=== PATIENT | female | born 1940 | race Caucasian/White ===

== ENCOUNTER 2017-05-25 11:15 | Emergency (ER) | payer MEDICARE ==
[~2017-05-25] VITALS: Ht 152.4 cm; Wt 85.0 kg
[2017-05-25 11:19] VITALS: BP 116/64; PULSE 75; RESP 12; TEMP 98.3; O2SAT 92
[2017-05-25] MEDS ORDERED: RIVA13.3 T-DERMAL (11:37)
[2017-05-25] MEDS ORDERED: OXYB10TA PO (11:37)
[2017-05-25] MEDS ORDERED: MEMA14CA PO (11:37)
--- NOTE | 2017-05-25 11:58 | PD ---
HPI Chief Complaint: Hip Injury Time Seen by Provider: 11:24 Travel History International Travel<30 days: No Contact w/Intl Traveler<30days: No Traveled to known affect area: No History of Present Illness HPI The patient is a 76-year-old female who presents emergency department with her for right hip pain. [place] she [place] and fell. The patient landed on her right hip. She complains of right hip pain and pelvic pain which is worse with weightbearing. She does have a history of previous right hip surgery approximately 25 years ago. The patient denies any loss of consciousness, headache, neck pain, chest pain, shortness breath, nausea, vomiting, or abdominal pain with the fall. The patient does have a history of dementia, somewhat limited historian, the provides most of the history. The patient does medications for dementia. The patient denies any other complaints except for right hip pain. PFSH Past Medical History Alzheimer's Disease: Yes Dementia: Yes Diminished Hearing: No Neurologic: Yes Tetanus Vaccination: < 5 Years Influenza Vaccination: No Past Surgical History Other Surgery: Yes (left carpal tunnel sx) Social History Alcohol Use: No Tobacco Use: No Substance Use: No Allergies-Medications (Allergen,Severity, Reaction): Coded Allergies: Fish Containing Products (Verified Allergy, Unknown, 05/25/17) Uncoded Allergies: HORSE (Allergy, Unknown, 05/25/17) Reported Meds & Prescriptions Reported Meds & Active Scripts Active Dinuba (Hydrocodone-Acetaminophen) 5 Mg-325 Mg Tab 1 Tab PO Q6H PRN Walker [place] Wheels/5 Adj (Device) 1 Mis Mis Ea .XX DIRECTED Use walker as directed Reported Oxybutynin ER 24 HR (Oxybutynin Chloride) 10 Mg Tab 10 Mg PO DAILY Exelon Patch (Rivastigmine) 13.3 mg/24 hr Patch 1 Patch T-DERMAL DAILY Namenda Xr (Memantine) Unknown Strength Caper Unknown Dose PO DAILY Review of Systems Except as stated in HPI: all other systems reviewed are Neg HENT: No: Headaches, Neck Pain Cardiovascular: No: Chest Pain or Discomfort Respiratory: No: Shortness of Breath Gastrointestinal: No: Nausea, Vomiting, Abdominal Pain Musculoskeletal: Positive: Pain Neurologic: Positive: Other (history of dementia), No: Paresthesia, Sensory Disturbance Physical Exam Narrative GENERAL: Awake, alert, 76-year-old female who appears her stated age and is in no acute respiratory distress. SKIN: Focused skin assessment warm/dry. HEAD: Atraumatic. Normocephalic. EYES: Pupils equal and round. 3 mm bilateral and reactive. ENT: No nasal bleeding or discharge. Mucous membranes pink and moist. NECK: Trachea midline. No JVD. CARDIOVASCULAR: Regular rate and rhythm. No murmur appreciated. RESPIRATORY: No accessory muscle use. Clear to auscultation. Breath sounds equal bilaterally. GASTROINTESTINAL: Abdomen soft, non-tender, nondistended. No rebound tenderness. MUSCULOSKELETAL: Well-healed scar over the lateral aspect of the right hip. Mild lower extremity pitting edema. NEUROLOGICAL: Awake and alert. No obvious cranial nerve deficits. Motor grossly within normal limits. Normal speech. Nonfocal. Oriented to name. PSYCHIATRIC: Appropriate mood and affect; insight and judgment normal. Data Data Last Documented VS Vital Signs Date Time Temp Pulse Resp B/P (MAP) Pulse Ox O2 Delivery O2 Flow Rate FiO2 05/25/17 11:19 98.3 75 12 116/64 (81) 92 Orders Orders Pelvis, Ap Only (Routine) (05/25/17 ) Femur (Ap & Lat/2vws) (05/25/17 ) Ct Pelvis W/O Iv Contrast (05/25/17 ) Splinting (05/25/17 ) Radiology Film Requests (05/25/17 ) Ed Discharge Order (05/25/17 13:54) [facility] Medical Decision Making Medical Screen Exam Complete: Yes Emergency Medical Condition: Yes Medical Record Reviewed: Yes Interpretation(s) Last Impressions Pelvis X-Ray 05/25/17 0000 Signed Impressions: Service Date/Time: Thursday, May 25, 2017 11:49 - CONCLUSION: 1. Right hip arthroplasty in place with apparent fracture of the right lesser trochanter. 2. Prominent degenerative changes of the left hip. Scott Larios MD Pelvis CT 05/25/17 0000 Signed Impressions: Service Date/Time: Thursday, May 25, 2017 12:54 - CONCLUSION: 1. Right hip arthroplasty in place with slightly comminuted displaced fracture of the lesser trochanter. 2. Otherwise, no evidence for acute bony fracture or other acute amount in the pelvis. Scott Larios MD Femur X-Ray 05/25/17 0000 Signed Impressions: Service Date/Time: Thursday, May 25, 2017 11:50 - CONCLUSION: 1. Right hip arthroplasty with extensive plate and screw fixation of the right femur. 2. Displaced fracture of the lesser trochanter. Scott Larios MD Differential Diagnosis Differential diagnosis includes fracture, dislocation, hematoma, contusion, pelvic fracture, mechanical fall. Narrative Course X-ray of the right hip was obtained. X-ray of the hip reveals fracture lesser trochanter. CT the pelvis reveals fracture lesser trochanter. I discussed the patient with the on-call orthopedist, Dr. Ponce, who states the patient can be discharged home with a walker and no weightbearing on the left leg. I discussed this with the , he states he had a walker in [place], [place] and are heading to [place] straight from the ER. The patient will be provided a copy of her x-rays and CTs at discharge. Diagnosis Primary Impression: Fracture of lesser trochanter of femur Qualified Codes: S72.121A - Displaced fracture of lesser trochanter of right femur, initial encounter for closed fracture Patient Instructions: General Instructions Additional Instructions: Please provide the patient a copy of the disc containing her CTs and lab results. Pain medications as directed. Use walker as directed. Follow-up with your orthopedist. Return if symptoms worsen or progress. Med/Other Pt SpecificInfo: Prescription(s) given Scripts Hydrocodone-Acetaminophen (Dinuba) 5 Mg-325 Mg Tab 1 TAB PO Q6H Y for PAIN, #15 TAB 0 Refills Prov: Ho Dong MD 05/25/17 Walker [place] Wheels/5 Adj (Walker [place] Wheels/5 Adj) 1 Mis Mis EA .XX DIRECTED, #1 0 Refills Use walker as directed Prov: Ho Dong MD 05/25/17 Disposition: 01 DISCHARGE HOME Condition: Stable Ho Dong MD May 25, 2017 11:58
--- NOTE | 2017-05-25 12:20 | RADRPT ---
EXAM DATE/TIME: 05/25/2017 11:49 [facility] COMPARISON: No previous studies available for comparison. INDICATIONS : Pain from fall. MEDICAL HISTORY : Prior fracture. SURGICAL HISTORY : Hip replacement, right. Pain stimulator. Lumbar fusion, right. ENCOUNTER: Initial ACUITY: 1 day PAIN SCORE: 10/10 LOCATION: Right hip. FINDINGS: There is a right hip arthroplasty in place. Visualized portions of the hardware appear intact. There is a mildly displaced fracture of the lesser trochanter on the right which is incompletely imaged. Ir regularity of the right inferior pubic ramus consistent with prior injury. Prominent degenerative kindra nges of the left hip. Posterior blaise and screw fixation at L5-S1. IVC filter in place. Neurostimulator in place. Osseous structures are otherwise intact without evidence for acute bony fracture. CONCLUSION: 1. Right hip arthroplasty in place with apparent fracture of the right lesser trochanter. 2. Prominent degenerative changes of the left hip. Scott Larios MD on May 25, 2017 at 12:15 Board Certified Radiologist. This report was verified electronically.
--- NOTE | 2017-05-25 12:23 | RADRPT ---
EXAM DATE/TIME: 05/25/2017 11:50 [facility] COMPARISON: No previous studies available for comparison. INDICATIONS : Pain from fall. MEDICAL HISTORY : Prior fracture, right leg. SURGICAL HISTORY : Hip replacement, right. Pain stimulator. Lumbar fusion, right. ENCOUNTER: Initial ACUITY: 1 day PAIN SCORE: 10/10 LOCATION: Right hip. FINDINGS: There is a right hip arthroplasty in place with plate and screw fixation of the femur. Hardware appea rs intact without significant noé-hardware loosening. There is a displaced fracture of the lesser tr ochanter. Soft tissues are unremarkable. CONCLUSION: 1. Right hip arthroplasty with extensive plate and screw fixation of the right femur. 2. Displaced fracture of the lesser trochanter. Scott Larios MD on May 25, 2017 at 12:20 Board Certified Radiologist. This report was verified electronically.
--- NOTE | 2017-05-25 13:15 | RADRPT ---
EXAM DATE/TIME: 05/25/2017 12:54 [facility] COMPARISON: No previous studies available for comparison. INDICATIONS : Fall onto right hip today. ORAL CONTRAST: No oral contrast ingested. RADIATION DOSE: 24.22 CTDIvol (mGy) MEDICAL HISTORY : Alzheimer's SURGICAL HISTORY : right hip replacement ENCOUNTER: Initial ACUITY: 1 day PAIN SCALE: 7/10 LOCATION: Right hip TECHNIQUE: Volumetric scanning of the pelvis was performed. Using automated exposure control and adjustment of the mA and/or kV according to patient size, radiation dose was kept as low as reasonably achievable t o obtain optimal diagnostic quality images. DICOM format image data is available electronically for review and comparison. FINDINGS: BOWEL/MESENTERY: The visualized small and large bowel demonstrate no acute abnormality. There is no free fluid. There is an IVC filter in place. No significant free fluid or drainable fluid collection. BLADDER: There is no wall thickening or mass. RETROPERITONEUM: There is no aneurysm or lymphadenopathy. REPRODUCTIVE: Within normal limits. INGUINAL: There is no lymphadenopathy or hernia. MUSCULOSKELETAL: There is a right hip arthroplasty in place. Slightly comminuted displaced fracture of the lesser troc hanter. Old healed inferior right pubic ramus fracture. Previous right transpedicular screw and blaise f ixation at L5-S1. 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 No additional acute fractures. There is a neurostimulator although the vladimir ds are not demonstrated. CONCLUSION: 1. Right hip arthroplasty in place with slightly comminuted displaced fracture of the lesser trochant er. 2. Otherwise, no evidence for acute bony fracture or other acute amount in the pelvis. Scott Larios MD on May 25, 2017 at 13:09 Board Certified Radiologist. This report was verified electronically.
[2017-05-25] MEDS ORDERED: WALKER GLIDE WH1 MI1 (13:50)
[2017-05-25] MEDS ORDERED: NORC5TAB PO (13:50)
[2017-05-25 14:00] VITALS: BP 150/71; PULSE 75; RESP 19; O2SAT 95
== END 2017-05-25 14:35 | disposition home or self-care (01) ==
LOC: NEPE 11:15
DX: S72.121A Displaced fracture of lesser trochanter of right femur, initial encounter for closed fracture (principal); F03.90 Unspecified dementia, unspecified severity, without behavioral disturbance, psychotic disturbance, mood disturbance, and anxiety; G30.9 Alzheimer's disease, unspecified; F02.80 Dementia in other diseases classified elsewhere, unspecified severity, without behavioral disturbance, psychotic disturbance, mood disturbance, and anxiety; W01.0XXA Fall on same level from slipping, tripping and stumbling without subsequent striking against object, initial encounter; Z79.899 Other long term (current) drug therapy
CPT/HCPCS: 72170; 72192; 73552; 99284